=== PATIENT | male | born 1995 | race Hispanic/Latino ===

== ENCOUNTER 2019-10-24 10:57 | Emergency (ER) | payer OTHER, SELFPAY ==
--- NOTE | 2019-10-24 12:16 | ER ---
Nurse's Notes [facility] Name: Ivan Cordero Age: 24 yrs Sex: Male : 1995 Arrival Date: 10/24/2019 Time: 10:58 Bed 16 Private MD: Unknown, Unknown Diagnosis: Acute upper respiratory infection, unspecified Presentation: 10/24 11:12 Presenting complaint: Patient states: Sore throat yesterday and woke this morning and jl7 coughed up blood in my hand. Transition of care: patient was not received from another setting of care. Onset of symptoms was October 24, 2019. Risk Assessment: Do you want to hurt yourself or someone else? Patient reports no desire to harm self or others. Initial Sepsis Screen: Does the patient meet any 2 criteria? No. Patient's initial sepsis screen is negative. Does the patient have a suspected source of infection? Yes: Productive cough/pneumonia. Care prior to arrival: None. 11:12 Method Of Arrival: Ambulatory [facility] 11:12 Acuity: DANIEL 3 jl7 Triage Assessment: 11:14 General: Appears in no apparent distress. uncomfortable, Behavior is cooperative, jl7 anxious. Pain: Denies pain. Cardiovascular: Heart tones present Patient's skin is warm and dry. Respiratory: Airway is patent Respiratory effort is even, unlabored, Respiratory pattern is regular, symmetrical, Breath sounds are clear bilaterally. Historical: - Allergies: 11:14 No Known Allergies; jl7 - Home Meds: 11:14 None [Active]; jl7 - PMHx: 11:14 None; jl7 - PSHx: 11:14 Tonsillectomy; Adenoids; Hernia repair; jl7 - Immunization history:: Adult Immunizations not up to date. - Social history:: Smoking status: Patient uses tobacco products, smokes one-half pack cigarettes per day. - Ebola Screening: : No symptoms or risks identified at this time. Screenin:53 Abuse screen: Denies threats or abuse. Denies injuries from another. Nutritional ca1 screening: No deficits noted. Tuberculosis screening: No symptoms or risk factors identified. Fall Risk None identified. Assessment: 11:53 General: Appears in no apparent distress. comfortable, Behavior is calm, cooperative, ca1 appropriate for age. Pain: Denies pain. Neuro: Level of Consciousness is awake, alert, obeys commands, Oriented to person, place, time, situation, Appropriate for age. Cardiovascular: Heart tones S1 S2 present Capillary refill < 3 seconds Patient's skin is warm and dry. Respiratory: Reports cough that is pt states, "I always have a little cough here and there" Airway is patent Respiratory effort is even, unlabored, Respiratory pattern is regular, symmetrical, Breath sounds are clear bilaterally. EENT: Throat is clear. Derm: Skin is intact, is healthy with good turgor, Skin is pink, warm \\T\\ dry. Musculoskeletal: Circulation, motion, and sensation intact. Capillary refill < 3 seconds, Range of motion: intact in all extremities. Vital Signs: 11:14 BP 119 / 69; Pulse 80; Resp 18 S; Temp 98.1(O); Pulse Ox 99% on R/A; Weight 68.04 kg jl7 (R); Height 5 ft. 9 in. (175.26 cm) (R); Pain 0/10; 12:10 BP 115 / 73; Pulse 79; Resp 17 S; Pulse Ox 100% on R/A; ca1 11:14 Body Mass Index 22.15 (68.04 kg, 175.26 cm) 7 ED Course: 10:58 Patient arrived in ED. ag5 11:00 Unknown, Unknown is Private Physician. ag5 11:13 Triage completed. jl7 11:14 Arm band placed on right wrist. jl7 11:16 Patient placed in waiting room, Patient notified of wait time. jl7 11:34 Yue Erickson, RN is Primary Nurse. ca1 11:36 Mon[facility] Andre F[facility]-C [facility]. snw 11:36 Marvin James MD is Attending Physician. snw 11:53 Patient has correct armband on for positive identification. Bed in low position. Call ca1 light in reach. Side rails up X 1. Pulse ox on. NIBP on. Warm blanket given. 11:53 No provider procedures requiring assistance completed. Patient did not have IV access ca1 during this emergency room visit. Administered Medications: No medications were administered Outcome: 12:15 Discharge ordered by . snw 12:31 Discharged to home ambulatory. ca1 12:31 Condition: stable 12:31 Discharge instructions given to patient, Instructed on discharge instructions, follow up and referral plans. medication usage, Demonstrated understanding of instructions, follow-up care, medications, Prescriptions given X 1. 12:31 Patient left the ED. ca1 Signatures: Monique Andre, CHILD CARE ASSOCIATE TEACHER-C CHILD CARE ASSOCIATE TEACHER-Csnw Ishmael Pruitt RN RN jl7 Yue Erickson RN RN ca1 [place], [place] ag5
--- NOTE | 2019-10-24 12:16 | EDPHYS ---
Physician Documentation [facility] Name: Ivan Cordero Age: 24 yrs Sex: Male : 1995 Arrival Date: 10/24/2019 Time: 10:58 Bed 16 Private MD: Unknown, Unknown ED Physician Marvin James HPI: 10/24 12:12 This 24 yrs old Male presents to ER via Ambulatory with complaints of Bloody snw Cough. 12:12 Onset: The symptoms/episode began/occurred suddenly. Associated signs and symptoms: snw Pertinent positives: sore throat. Modifying factors: The patient symptoms are alleviated by nothing, the patient symptoms are aggravated by nothing. The patient has not experienced similar symptoms in the past. The patient has not recently seen a physician. no other complaints. Historical: - Allergies: 11:14 No Known Allergies; jl7 - Home Meds: 11:14 None [Active]; jl7 - PMHx: 11:14 None; jl7 - PSHx: 11:14 Tonsillectomy; Adenoids; Hernia repair; jl7 - Immunization history:: Adult Immunizations not up to date. - Social history:: Smoking status: Patient uses tobacco products, smokes one-half pack cigarettes per day. - Ebola Screening: : No symptoms or risks identified at this time. ROS: 12:11 Constitutional: Negative for fever, chills, and weight loss, Eyes: Negative for injury, snw pain, redness, and discharge, Neck: Negative for injury, pain, and swelling, Cardiovascular: Negative for chest pain, palpitations, and edema, Abdomen/GI: Negative for abdominal pain, nausea, vomiting, diarrhea, and constipation, Back: Negative for injury and pain, : Negative for injury, bleeding, discharge, and swelling, MS/Extremity: Negative for injury and deformity, Skin: Negative for injury, rash, and discoloration, Neuro: Negative for headache, weakness, numbness, tingling, and seizure, Psych: Negative for depression, anxiety, suicide ideation, homicidal ideation, and hallucinations. 12:11 ENT: Positive for sore throat. 12:11 Respiratory: Positive for coughed up blood this am x 1. Exam: 12:11 Constitutional: This is a well developed, well nourished patient who is awake, alert, snw and in no acute distress. Head/Face: Normocephalic, atraumatic. Eyes: Pupils equal round and reactive to light, extra-ocular motions intact. Lids and lashes normal. Conjunctiva and sclera are non-icteric and not injected. Cornea within normal limits. Periorbital areas with no swelling, redness, or edema. ENT: Nares patent. No nasal discharge, no septal abnormalities noted. Tympanic membranes are normal and external auditory canals are clear. Oropharynx with no redness, swelling, or masses, exudates, or evidence of obstruction, uvula midline. Mucous membranes moist. Neck: Trachea midline, no thyromegaly or masses palpated, and no cervical lymphadenopathy. Supple, full range of motion without nuchal rigidity, or vertebral point tenderness. No Meningismus. Chest/axilla: Normal chest wall appearance and motion. Nontender with no deformity. No lesions are appreciated. Cardiovascular: Regular rate and rhythm with a normal S1 and S2. No gallops, murmurs, or rubs. Normal PMI, no JVD. No pulse deficits. Respiratory: Lungs have equal breath sounds bilaterally, clear to auscultation and percussion. No rales, rhonchi or wheezes noted. No increased work of breathing, no retractions or nasal flaring. Abdomen/GI: Soft, non-tender, with normal bowel sounds. No distension or tympany. No guarding or rebound. No evidence of tenderness throughout. Back: No spinal tenderness. No costovertebral tenderness. Full range of motion. Skin: Warm, dry with normal turgor. Normal color with no rashes, no lesions, and no evidence of cellulitis. MS/ Extremity: Pulses equal, no cyanosis. Neurovascular intact. Full, normal range of motion. Neuro: Awake and alert, GCS 15, oriented to person, place, time, and situation. Cranial nerves II-XII grossly intact. Motor strength 5/5 in all extremities. Sensory grossly intact. Cerebellar exam normal. Normal gait. Psych: Awake, alert, with orientation to person, place and time. Behavior, mood, and affect are within normal limits. Vital Signs: 11:14 BP 119 / 69; Pulse 80; Resp 18 S; Temp 98.1(O); Pulse Ox 99% on R/A; Weight 68.04 kg jl7 (R); Height 5 ft. 9 in. (175.26 cm) (R); Pain 0/10; 12:10 BP 115 / 73; Pulse 79; Resp 17 S; Pulse Ox 100% on R/A; ca1 11:14 Body Mass Index 22.15 (68.04 kg, 175.26 cm) jl7 MDM: 11:43 Patient medically screened. snw 12:13 Data reviewed: vital signs, nurses notes. Data interpreted: Pulse oximetry: on room air snw is 100 %. Interpretation: normal. Counseling: I had a detailed discussion with the patient and/or guardian regarding: the historical points, exam findings, and any diagnostic results supporting the discharge/admit diagnosis, lab results, the need for outpatient follow up, to return to the emergency department if symptoms worsen or persist or if there are any questions or concerns that arise at home. Special discussion: Based on the history and exam findings, there is no indication for further emergent testing or inpatient evaluation. I discussed with the patient/guardian the need to see the primary care provider for further evaluation of the symptoms. 12:16 ED course: pt denies hematuria, epistaxis, gingival bleeding, does have one very small snw pretibial ecchymotic area. 10/24 11:55 Order name: Strep; Complete Time: 12:13 ca1 10/24 12:15 Order name: Throat Culture EDMS Administered Medications: No medications were administered Disposition: 15:20 Co-signature as Attending Physician, Marvin James MD I agree with the assessment and benny plan of care. Disposition: 10/24/19 12:15 Discharged to Home. Impression: Acute upper respiratory infection, unspecified. - Condition is Stable. - Discharge Instructions: Upper Respiratory Infection, Adult, Cool Mist Vaporizer. - Prescriptions for Zyrtec 10 mg Oral Tablet - take 1 tablet by ORAL route once daily As needed; 20 tablet. - Medication Reconciliation Form, Thank You Letter, Antibiotic Education, Prescription Opioid Use, Work release form form. - Follow up: Private Physician; When: 2 - 3 days; Reason: Recheck today's complaints, Continuance of care, Re-evaluation by your physician. Follow up: Emergency Department; When: As needed; Reason: Worsening of condition. Signatures: Dispatcher [employer] EDMarvin Maza MD MD cha Therrien, Shelly, CYBER WORKFORCE DEVELOPER AND MANAGER-C CYBER WORKFORCE DEVELOPER AND MANAGER-Csnw Ishmael Pruitt, RN RN jl7 Yue Erickson RN RN ca1 Corrections: (The following items were deleted from the chart) 12:31 12:15 10/24/2019 12:15 Discharged to Home. Impression: Acute upper respiratory ca1 infection, unspecified. Condition is Stable. Forms are Medication Reconciliation Form, Thank You Letter, Antibiotic Education, Prescription Opioid Use. Follow up: Private Physician; When: 2 - 3 days; Reason: Recheck today's complaints, Continuance of care, Re-evaluation by your physician. Follow up: Emergency Department; When: As needed; Reason: Worsening of condition. snw
[2019-10-24 12:44] VITALS: TEMP 98.1
[2019-10-24 12:45] VITALS: BP 115/73; O2SAT 100
== END 2019-10-24 12:31 | disposition home or self-care (01) ==
LOC: ER 10:57
DX: J06.9 Acute upper respiratory infection, unspecified (principal); F17.210 Nicotine dependence, cigarettes, uncomplicated
CPT/HCPCS: 87070; 87081; 99283

== ENCOUNTER 2019-11-21 08:33 | Emergency (ER) | payer SELFPAY ==
[2019-11-21 10:49] LABS: Absolute Lymphocytes (CBC) 3.1 K/uL (0.7-4.9); Hematocrit 42.6 % (39.6-49.0); MPV 9.4 fL (7.6-11.3); RBC Red Blood Cell Count 4.44 M/uL (4.33-5.43)
[2019-11-21] MEDS ORDERED: ONDANSETRON 4 MG/2 ML VIAL ONE (11:09)
[2019-11-21] MEDS ORDERED: NA CHLORIDE 0.9% 1,000 ML ONE (11:09)
[2019-11-21 11:32] LABS: ALT/SGPT 23 U/L (12-78); AST/SGOT 15 U/L (15-37); Albumin 4.1 g/dL (3.4-5.0); Alkaline Phosphatase 73 U/L (45-117); BUN Blood Urea Nitrogen 18 mg/dL (7-18); Bicarbonate 30 mmol/L (21-32); Bilirubin Direct 0.1 mg/dL (0-0.2); Bilirubin Total 0.3 mg/dL (0.2-1.0); Glucose Level 100 mg/dL (74-106); Lipase 156 U/L (73-393); Potassium 4.1 mmol/L (3.5-5.1); Protein, Total 6.9 g/dL (6.4-8.2); Sodium Level 140 mmol/L (136-145)
--- NOTE | 2019-11-21 11:42 | ER ---
Nurse's Notes [facility] Name: Ivan Cordero Age: 24 yrs Sex: Male : 1995 Arrival Date: 11/21/2019 Time: 08:36 Bed 24 Private MD: Diagnosis: Nausea and vomiting;Diarrhea, unspecified Presentation: 11/21 08:57 Presenting complaint: Patient states: "Around 5pm I was at work and that's when I ss started throwing up. I went to sleep to see if it would go away, but I woke up around 0700 this morning throwing up again. I don't know if it has anything to do with it, but I have had diarrhea for the past two weeks.". Transition of care: patient was not received from another setting of care. Onset of symptoms was November 20, 2019. Risk Assessment: Do you want to hurt yourself or someone else? Patient reports no desire to harm self or others. Initial Sepsis Screen: Does the patient meet any 2 criteria? No. Patient's initial sepsis screen is negative. Does the patient have a suspected source of infection? No. Patient's initial sepsis screen is negative. Care prior to arrival: None. 08:57 Method Of Arrival: Ambulatory ss 08:57 Acuity: DANIEL 3 ss Triage Assessment: 12:00 GI: Reports nausea. mg2 12:08 General: Behavior is calm, cooperative. mg2 Historical: - Allergies: 08:59 No Known Allergies; ss - Home Meds: 08:59 None [Active]; ss - PMHx: 08:59 None; ss - PSHx: 08:59 None; ss - Immunization history:: Adult Immunizations up to date. - Social history:: Smoking status: Patient/guardian denies using tobacco. - Ebola Screening: : Patient denies exposure to infectious person Patient denies travel to an Ebola-affected area in the 21 days before illness onset. Screenin:07 Abuse screen: Denies threats or abuse. Denies injuries from another. Nutritional mg2 screening: No deficits noted. Tuberculosis screening: No symptoms or risk factors identified. Fall Risk IV access (20 points). Assessment: 10:10 General: Appears in no apparent distress. comfortable, Behavior is calm, cooperative. ss Neuro: Level of Consciousness is awake, alert, obeys commands, Oriented to person, place, time, situation, Speech is normal. Respiratory: Airway is patent Respiratory effort is even, unlabored, Respiratory pattern is regular, symmetrical. GI: Reports nausea, vomiting, Patient currently denies abdominal pain. : Denies burning with urination, urinary frequency. Derm: Skin is dry, Skin is pink, warm \\T\\ dry. normal. 11:00 General: Appears in no apparent distress. comfortable, Behavior is calm, cooperative. ss Neuro: Level of Consciousness is awake, alert, obeys commands. 12:06 Reassessment: Patient appears in no apparent distress at this time. General: Appears in mg2 no apparent distress. comfortable. Pain: Denies pain. Neuro: Level of Consciousness is awake, alert, obeys commands, Oriented to person, place, time, situation. Cardiovascular: No deficits noted. Respiratory: Airway is patent Respiratory effort is even, unlabored, Respiratory pattern is regular, symmetrical. GI: Abdomen is flat, obese. : No signs and/or symptoms were reported regarding the genitourinary system. EENT: No signs and/or symptoms were reported regarding the EENT system. Derm: Skin is intact, is healthy with good turgor, Skin is pink, warm \\T\\ dry. normal. Musculoskeletal: Circulation, motion, and sensation intact. Capillary refill < 3 seconds. Vital Signs: 08:59 BP 120 / 91; Pulse 76; Resp 17; Temp 97.6(TE); Pulse Ox 99% on R/A; Weight 68.04 kg; ss Height 5 ft. 5 in. (165.10 cm); Pain 0/10; 12:03 BP 106 / 60; Pulse 69; Resp 18; Pulse Ox 100% on R/A; jp3 08:59 Body Mass Index 24.96 (68.04 kg, 165.10 cm) ED Course: 08:36 Patient arrived in ED. ag5 08:59 Triage completed. 08:59 Arm band placed on right wrist. ss 10:08 Khai Odom PA is PHCP. jr8 10:08 Marvin James MD is Attending Physician. jr8 10:40 Initial lab(s) drawn, by nc, sent to lab. Inserted saline lock: 20 gauge in right ms forearm, using aseptic technique. Blood collected. 11:03 Margret Damico, RN is Primary Nurse. ss 11:41 Mehrdad Edmonds MD is Referral Physician. jr8 12:04 Removal of peripheral IV. Catheter intact, dressing applied. jp3 12:07 Patient has correct armband on for positive identification. Pulse ox on. NIBP on. mg2 12:07 No provider procedures requiring assistance completed. IV discontinued, intact, mg2 bleeding controlled, No redness/swelling at site. Pressure dressing applied. Administered Medications: 11:10 Drug: Zofran 4 mg Route: IVP; Site: right forearm; ss 11:13 Drug: NS 0.9% 1000 ml Route: IV; Rate: 1000 ml; Site: right forearm; ss Outcome: 11:41 Discharge ordered by . jr8 12:08 Discharged to home ambulatory. mg2 12:08 Condition: stable 12:08 Discharge instructions given to patient, Instructed on discharge instructions, follow up and referral plans. medication usage, Demonstrated understanding of instructions, follow-up care, medications, Prescriptions given X 4. 12:08 Patient left the ED. mg2 Signatures: Marii Murray ms, Shelby, RN RN Khai Odom PA PA jr8 Saud Edwards, MARGARITO RN [facility] Brenton Montano jp3 [place] ag5
--- NOTE | 2019-11-21 11:42 | EDPHYS ---
Physician Documentation [facility] Name: Ivan Cordero Age: 24 yrs Sex: Male : 1995 Arrival Date: 11/21/2019 Time: 08:36 Bed 24 Private MD: ED Physician Marvin James HPI: 11/21 11:17 This 24 yrs old Male presents to ER via Ambulatory with complaints of jr8 Vomiting/Diarrhea. 11:17 The patient presents to the emergency department with nausea, vomiting, diarrhea. jr8 Onset: The symptoms/episode began/occurred gradually, 4 day(s) ago. Possible causes: unknown. The symptoms are aggravated by nothing. The symptoms are alleviated by nothing. Associated signs and symptoms: The patient has no apparent associated signs or symptoms. Severity of symptoms: At their worst the symptoms were mild in the emergency department the symptoms are unchanged. The patient has not experienced similar symptoms in the past. The patient has not recently seen a physician. Historical: - Allergies: 08:59 No Known Allergies; ss - Home Meds: 08:59 None [Active]; ss - PMHx: 08:59 None; ss - PSHx: 08:59 None; ss - Immunization history:: Adult Immunizations up to date. - Social history:: Smoking status: Patient/guardian denies using tobacco. - Ebola Screening: : Patient denies exposure to infectious person Patient denies travel to an Ebola-affected area in the 21 days before illness onset. ROS: 11:17 Eyes: Negative for injury, pain, redness, and discharge, ENT: Negative for injury, jr8 pain, and discharge, Neck: Negative for injury, pain, and swelling, Cardiovascular: Negative for chest pain, palpitations, and edema, Respiratory: Negative for shortness of breath, cough, wheezing, and pleuritic chest pain, Back: Negative for injury and pain, MS/Extremity: Negative for injury and deformity, Skin: Negative for injury, rash, and discoloration, Neuro: Negative for headache, weakness, numbness, tingling, and seizure. 11:17 Abdomen/GI: Positive for nausea, vomiting, and diarrhea, Negative for abdominal pain, abdominal distension, anorexia, dysphagia, hematemesis, black/tarry stool, rectal pain, rectal bleeding, bowel incontinence, flatulence. Exam: 11:17 Eyes: Pupils equal round and reactive to light, extra-ocular motions intact. Lids and jr8 lashes normal. Conjunctiva and sclera are non-icteric and not injected. Cornea within normal limits. Periorbital areas with no swelling, redness, or edema. ENT: Nares patent. No nasal discharge, no septal abnormalities noted. Tympanic membranes are normal and external auditory canals are clear. Oropharynx with no redness, swelling, or masses, exudates, or evidence of obstruction, uvula midline. Mucous membranes moist. Neck: Trachea midline, no thyromegaly or masses palpated, and no cervical lymphadenopathy. Supple, full range of motion without nuchal rigidity, or vertebral point tenderness. No Meningismus. Cardiovascular: Regular rate and rhythm with a normal S1 and S2. No gallops, murmurs, or rubs. Normal PMI, no JVD. No pulse deficits. Respiratory: Lungs have equal breath sounds bilaterally, clear to auscultation and percussion. No rales, rhonchi or wheezes noted. No increased work of breathing, no retractions or nasal flaring. Abdomen/GI: Soft, non-tender, with normal bowel sounds. No distension or tympany. No guarding or rebound. No evidence of tenderness throughout. Back: No spinal tenderness. No costovertebral tenderness. Full range of motion. Skin: Warm, dry with normal turgor. Normal color with no rashes, no lesions, and no evidence of cellulitis. MS/ Extremity: Pulses equal, no cyanosis. Neurovascular intact. Full, normal range of motion. Neuro: Awake and alert, GCS 15, oriented to person, place, time, and situation. Cranial nerves II-XII grossly intact. Motor strength 5/5 in all extremities. Sensory grossly intact. Cerebellar exam normal. Normal gait. Vital Signs: 08:59 BP 120 / 91; Pulse 76; Resp 17; Temp 97.6(TE); Pulse Ox 99% on R/A; Weight 68.04 kg; ss Height 5 ft. 5 in. (165.10 cm); Pain 0/10; 12:03 BP 106 / 60; Pulse 69; Resp 18; Pulse Ox 100% on R/A; jp3 08:59 Body Mass Index 24.96 (68.04 kg, 165.10 cm) MDM: 10:10 Patient medically screened. [facility] 11:40 Data reviewed: vital signs, nurses notes, lab test result(s), and as a result, I will jr8 discharge patient. Data interpreted: Pulse oximetry: on room air is 99 %. Interpretation: normal. Counseling: I had a detailed discussion with the patient and/or guardian regarding: the historical points, exam findings, and any diagnostic results supporting the discharge/admit diagnosis, lab results, the need for outpatient follow up, a desktop specialist, to return to the emergency department if symptoms worsen or persist or if there are any questions or concerns that arise at home. Response to treatment: the patient's symptoms have markedly improved after treatment, patient is well hydrated. 11:40 Special discussion: Based on the patient's Hx, exam, and Dx evaluation, there is no [facility] indication for emergent surgery or inpatient Tx. It is understood by the patient/guardian that if the Sx's persist or worsen they need to return immediately for re-evaluation. 11/21 10:16 Order name: Basic Metabolic Panel; Complete Time: 11:40 11/21 10:16 Order name: CBC with Diff; Complete Time: 11:47 11/21 10:16 Order name: Creatinine for Radiology; Complete Time: 11:40 11/21 10:16 Order name: Hepatic Function; Complete Time: 11:40 8 11/21 10:16 Order name: Lipase; Complete Time: 11:40 11/21 11:43 Order name: CBC Smear Scan; Complete Time: 11:47 EDMS 11/21 10:16 Order name: IV Saline Lock; Complete Time: 10:40 11/21 10:16 Order name: Labs collected and sent; Complete Time: 10:40 [facility] Administered Medications: 11:10 Drug: Zofran 4 mg Route: IVP; Site: right forearm; ss 11:13 Drug: NS 0.9% 1000 ml Route: IV; Rate: 1000 ml; Site: right forearm; ss Disposition: 12:39 Co-signature as Attending Physician, Marvin James MD I agree with the assessment and [facility] plan of care. Disposition: 11/21/19 11:41 Discharged to Home. Impression: Nausea and vomiting, Diarrhea, unspecified. - Condition is Stable. - Discharge Instructions: Diarrhea, Adult, Nausea and Vomiting, Adult. - Prescriptions for Bentyl 20 mg Oral Tablet - take 1 tablet by ORAL route every 6 hours As needed; 20 tablet. Cipro 500 mg Oral Tablet - take 1 tablet by ORAL route every 12 hours for 10 days; 20 tablet. Flagyl 500 mg Oral Tablet - take 1 tablet by ORAL route every 6 hours for 10 days; 40 tablet. Zofran 4 mg Oral Tablet - take 1 tablet by ORAL route every 12 hours As needed; 20 tablet. - Medication Reconciliation Form, Thank You Letter, Antibiotic Education, Prescription Opioid Use, Work release form form. - Follow up: Mehrdad Edmonds MD; When: 1 week; Reason: Recheck today's complaints, Continuance of care, Re-evaluation by your physician. - Problem is new. - Symptoms have improved. Signatures: Dispatcher [employer] EDWY Marvin James MD MD cha Smirch, Shelby, RN RN Khai Ly PA PA jr8 Saud Edwards RN RN mg2 Corrections: (The following items were deleted from the chart) 12:08 11:41 11/21/2019 11:41 Discharged to Home. Impression: Nausea and vomiting; Diarrhea, mg2 unspecified. Condition is Stable. Forms are Medication Reconciliation Form, Thank You Letter, Antibiotic Education, Prescription Opioid Use. Follow up: Mehrdad Edmonds; When: 1 week; Reason: Recheck today's complaints, Continuance of care, Re-evaluation by your physician. Problem is new. Symptoms have improved. jr8
[2019-11-21 11:43] LABS: Blood Morphology Comment NOT SEEN (NOT SEEN); Platelet Estimate ADEQ; Urine White Blood Cell Casts OK
[2019-11-21 12:30] VITALS: TEMP 97.6
[2019-11-21 12:32] VITALS: BP 106/60; O2SAT 100
== END 2019-11-21 12:08 | disposition home or self-care (01) ==
LOC: ER 08:33
DX: R11.2 Nausea with vomiting, unspecified (principal); R19.7 Diarrhea, unspecified
CPT/HCPCS: 36415; 80048; 80076; 83690; 85025; 96374; 99284; J2405; J7030

== ENCOUNTER 2019-11-28 16:39 | Emergency (ER) | payer SELFPAY ==
[2019-11-28 19:43] LABS: Absolute Lymphocytes (CBC) 2.2 K/uL (0.7-4.9); Basophils % 1.1 % (0-1.3); Hematocrit 43.9 % (39.6-49.0); Lymphocytes % 44.3 % (15.3-44.8); MPV 9.9 fL (7.6-11.3); RBC Red Blood Cell Count 4.56 M/uL (4.33-5.43)
[2019-11-28 20:06] LABS: ALT/SGPT 26 U/L (12-78); AST/SGOT 12 U/L (15-37); Albumin 4.3 g/dL (3.4-5.0); Alkaline Phosphatase 83 U/L (45-117); BUN Blood Urea Nitrogen 14 mg/dL (7-18); Bicarbonate 28 mmol/L (21-32); Bilirubin Direct 0.2 mg/dL (0-0.2); Bilirubin Total 0.6 mg/dL (0.2-1.0); Glucose Level 78 mg/dL (74-106); Lipase 110 U/L (73-393); Potassium 3.8 mmol/L (3.5-5.1); Protein, Total 7.6 g/dL (6.4-8.2); Sodium Level 142 mmol/L (136-145)
[2019-11-28] MEDS ORDERED: NA CHLORIDE 0.9% 1,000 ML ONE (20:10)
[2019-11-28 20:26] LABS: Platelet Estimate ADEQ
[2019-11-28 20:27] LABS: Blood Morphology Comment NOT SEEN (NOT SEEN)
--- NOTE | 2019-11-28 20:42 | ER ---
Nurse's Notes [facility] Name: Ivan Cordero Age: 24 yrs Sex: Male : 1995 Arrival Date: 11/28/2019 Time: 16:42 Bed 27 Private MD: Diagnosis: Diarrhea, unspecified Presentation: 11/28 16:44 Presenting complaint: Patient states: "I came in here about 3 days ago for the same aj1 thing, but as soon as eat something it goes right through me and I have to go to the bathroom immediately" Patient reports diarrhea. Transition of care: patient was not received from another setting of care. Onset of symptoms was 2019. Risk Assessment: Do you want to hurt yourself or someone else? Patient reports no desire to harm self or others. Initial Sepsis Screen: Does the patient meet any 2 criteria? No. Patient's initial sepsis screen is negative. Does the patient have a suspected source of infection? No. Patient's initial sepsis screen is negative. Care prior to arrival: None. 16:44 Method Of Arrival: Ambulatory aj1 16:44 Acuity: DANIEL 3 aj1 Triage Assessment: 16:46 General: Appears in no apparent distress. comfortable, Behavior is calm, cooperative, aj1 appropriate for age. Pain: Denies pain. Neuro: Level of Consciousness is awake, alert, obeys commands. Cardiovascular: Patient's skin is warm and dry. Respiratory: Airway is patent Respiratory effort is even, unlabored, Respiratory pattern is regular, agonal. GI: Reports diarrhea. Historical: - Allergies: 16:46 No Known Allergies; aj1 - Home Meds: 16:46 None [Active]; aj1 - PMHx: 16:46 None; aj1 - PSHx: 16:46 None; aj1 - Immunization history:: Flu vaccine is not up to date. - Social history:: Smoking status: Patient/guardian denies using tobacco. - Ebola Screening: : Patient denies travel to an Ebola-affected area in the 21 days before illness onset. Screenin:26 Abuse screen: Denies threats or abuse. Nutritional screening: No deficits noted. jv1 Tuberculosis screening: No symptoms or risk factors identified. Fall Risk None identified. No fall in past 12 months (0 pts). Assessment: 20:18 General: Appears in no apparent distress. uncomfortable, well groomed, Behavior is jv1 calm, cooperative, appropriate for age. Pain: Denies pain. Neuro: Level of Consciousness is awake, alert, obeys commands, Oriented to person, place, time, situation, Fuel Dock Attendant are equal bilaterally Moves all extremities. Cardiovascular: Denies chest pain, Heart tones S1 S2 Capillary refill < 3 seconds Pulses are all present. Respiratory: Airway is patent Respiratory effort is even, unlabored, Respiratory pattern is regular, symmetrical, Breath sounds are clear bilaterally. GI: Abdomen is flat, non-distended, Last BM was November 28, 2019. Bowel sounds present X 4 quads. Abd is soft Abd is non tender X 4 quads. : No signs and/or symptoms were reported regarding the genitourinary system. EENT: No signs and/or symptoms were reported regarding the EENT system. Derm: Skin is intact, is healthy with good turgor. Musculoskeletal: Circulation, motion, and sensation intact. Capillary refill < 3 seconds. 21:19 Reassessment: Patient appears in no apparent distress at this time. No changes from jv1 previously documented assessment. Patient and/or family updated on plan of care and expected duration. Pain level reassessed. Vital Signs: 16:46 BP 102 / 82; Pulse 77; Resp 18; Temp 97.3; Pulse Ox 98% on R/A; Weight 68.04 kg (R); aj1 Height 5 ft. 9 in. (175.26 cm) (R); Pain 0/10; 20:00 BP 120 / 80; Pulse 75; Resp 18; Temp 98; Pulse Ox 99% on R/A; Pain 0/10; jv1 21:00 BP 115 / 70; Pulse 74; Resp 18; Temp 98(O); Pulse Ox 99% on R/A; Pain 0/10; jv1 16:46 Body Mass Index 22.15 (68.04 kg, 175.26 cm) 1 ED Course: 16:42 Patient arrived in ED. mr 16:46 Triage completed. aj1 16:46 Arm band placed on Patient placed in waiting room, Patient notified of wait time. [facility] 19:05 Champ Jiang PA is PHCP. [facility] 19:05 Marvin James MD is Attending Physician. [facility] 19:08 Tabby Verdugo, MARGARITO is Primary Nurse. ls4 20:27 Patient has correct armband on for positive identification. Placed in gown. Bed in low jv1 position. Call light in reach. Side rails up X 1. Adult w/ patient. 21:30 No provider procedures requiring assistance completed. jv1 21:31 IV discontinued, intact, bleeding controlled, No redness/swelling at site. Pressure jv1 dressing applied. Administered Medications: 20:08 Drug: NS 0.9% 1000 ml Route: IV; Rate: 1 bolus; Site: left antecubital; jv1 21:31 Follow up: Response: No adverse reaction; IV Status: Completed infusion jv1 Outcome: 20:42 Discharge ordered by . vanessa 21:31 Discharged to home ambulatory. jv1 21:31 Condition: improved 21:31 Discharge instructions given to patient, family. 21:32 Patient left the ED. jv1 Signatures: Esperanza Solis, RN RN aj1 Champ Jiang PA PA jmm Rivera, Mary mr Sandy Smith RN RN jv1 Tabby Verdugo RN RN ls4
--- NOTE | 2019-11-28 20:43 | EDPHYS ---
Physician Documentation [facility] Name: Ivan Cordero Age: 24 yrs Sex: Male : 1995 Arrival Date: 11/28/2019 Time: 16:42 Bed 27 Private MD: ED Physician Marvin James HPI: 11/28 19:13 This 24 yrs old Male presents to ER via Ambulatory with complaints of jmm Vomiting/Diarrhea. 19:13 The patient presents to the emergency department with diarrhea. Onset: The jmm symptoms/episode began/occurred gradually, 3 day(s) ago. Possible causes: unknown. The symptoms are aggravated by nothing. The symptoms are alleviated by nothing. Associated signs and symptoms: Pertinent positives: diarrhea, Pertinent negatives: vomiting. This is a 24 year old male with no chronic medical conditions that presents to the ED with complaints of diarrhea which has been ongoing for the past 3 days. Denies vomiting, denies abdominal pain. . Historical: - Allergies: 16:46 No Known Allergies; aj1 - Home Meds: 16:46 None [Active]; aj1 - PMHx: 16:46 None; aj1 - PSHx: 16:46 None; aj1 - Immunization history:: Flu vaccine is not up to date. - Social history:: Smoking status: Patient/guardian denies using tobacco. - Ebola Screening: : Patient denies travel to an Ebola-affected area in the 21 days before illness onset. ROS: 19:13 Constitutional: Negative for fever, chills, and weight loss, Cardiovascular: Negative jmm for chest pain, palpitations, and edema, Respiratory: Negative for shortness of breath, cough, wheezing, and pleuritic chest pain. 19:13 Abdomen/GI: Positive for diarrhea. 19:13 All other systems are negative. Exam: 19:13 Constitutional: This is a well developed, well nourished patient who is awake, alert, jmm and in no acute distress. Head/Face: atraumatic. Eyes: EOMI, no conjunctival erythema appreciated ENT: Moist Mucus Membranes Neck: Trachea midline, Supple Chest/axilla: Normal chest wall appearance and motion. Cardiovascular: Regular rate and rhythm. No edema appreciated Respiratory: Normal respirations, no respiratory distress appreciated Abdomen/GI: Non distended, soft Back: Normal ROM Skin: General appearance color normal MS/ Extremity: Moves all extremities, no obvious deformities appreciated, no edema noted to the lower extremities Neuro: Awake and alert, normal gait Psych: Behavior is normal, Mood is normal, Patient is cooperative and pleasant Vital Signs: 16:46 BP 102 / 82; Pulse 77; Resp 18; Temp 97.3; Pulse Ox 98% on R/A; Weight 68.04 kg (R); aj1 Height 5 ft. 9 in. (175.26 cm) (R); Pain 0/10; 20:00 BP 120 / 80; Pulse 75; Resp 18; Temp 98; Pulse Ox 99% on R/A; Pain 0/10; jv1 21:00 BP 115 / 70; Pulse 74; Resp 18; Temp 98(O); Pulse Ox 99% on R/A; Pain 0/10; jv1 16:46 Body Mass Index 22.15 (68.04 kg, 175.26 cm) aj1 MDM: 19:07 Patient medically screened. [facility] 20:41 Data reviewed: vital signs, nurses notes. Counseling: I had a detailed discussion with vanessa the patient and/or guardian regarding: the historical points, exam findings, and any diagnostic results supporting the discharge/admit diagnosis, lab results, the need for outpatient follow up, to return to the emergency department if symptoms worsen or persist or if there are any questions or concerns that arise at home. ED course: Patient is alert and non toxic in appearance in the ED. Tolerates PO. No abdominal pain. Patient was given early appendicitis return precautions. Patient understood and agrees with the plan of care. . 11/28 19:12 Order name: Basic Metabolic Panel; Complete Time: 20:10 [facility] 11/28 19:12 Order name: CBC with Diff; Complete Time: 20:28 [facility] 11/28 19:12 Order name: Creatinine for Radiology; Complete Time: 19:58 [facility] 11/28 19:12 Order name: Hepatic Function; Complete Time: 20:10 [facility] 11/28 19:12 Order name: Lipase; Complete Time: 20:10 [facility] 11/28 19:50 Order name: Manual Differential; Complete Time: 20:28 [facility] 11/28 19:12 Order name: IV Saline Lock; Complete Time: 20:07 [facility] 11/28 19:12 Order name: Labs collected and sent; Complete Time: 20:08 [facility] Administered Medications: 20:08 Drug: NS 0.9% 1000 ml Route: IV; Rate: 1 bolus; Site: left antecubital; jv1 21:31 Follow up: Response: No adverse reaction; IV Status: Completed infusion jv1 Disposition: 11/28/19 20:42 Discharged to Home. Impression: Diarrhea, unspecified. - Condition is Stable. - Discharge Instructions: Food Choices to Help Relieve Diarrhea, Adult, Diarrhea, Adult, Form - Return To Work. - Medication Reconciliation Form, Thank You Letter, Antibiotic Education, Prescription Opioid Use, Work release form form. - Follow up: Private Physician; When: 2 - 3 days; Reason: Recheck today's complaints, Continuance of care, Re-evaluation by your physician. Addendum: 11/30/2019 09:59 Co-signature as Attending Physician, Marvin James MD I agree with the assessment and c sawant plan of care. Signatures: Dispatcher [employer] Esperanza Zendejas RN RN aj1 Marvin James MD MD cha Mickail, Joel, PA PA jm Sandy Smith, RN RN jv1 Corrections: (The following items were deleted from the chart) 11/28 21:32 20:42 11/28/2019 20:42 Discharged to Home. Impression: Diarrhea, unspecified. Condition jv1 is Stable. Forms are Medication Reconciliation Form, Thank You Letter, Antibiotic Education, Prescription Opioid Use. Follow up: Private Physician; When: 2 - 3 days; Reason: Recheck today's complaints, Continuance of care, Re-evaluation by your physician. vanessa
[2019-11-28 23:15] VITALS: TEMP 98; O2SAT 99
[2019-11-28 23:16] VITALS: BP 115/70
== END 2019-11-28 21:32 | disposition home or self-care (01) ==
LOC: ER 16:39
DX: R19.7 Diarrhea, unspecified (principal)
CPT/HCPCS: 36415; 80048; 80076; 83690; 85025; 96360; 99283; J7030

== ENCOUNTER 2021-06-16 18:31 | Emergency (ER) | payer SELFPAY ==
--- NOTE | 2021-06-16 21:37 | EDPHYS ---
Physician Documentation [facility] Name: Ivan Cordero Age: 26 yrs Sex: Male : 1995 Arrival Date: 06/16/2021 Time: 18:41 Bed DIS2 Private MD: ED Physician Eric Canales HPI: 06/16 21:29 This 26 yrs old Male presents to ER via Ambulatory with complaints of Covid cp test. 21:30 The patient or guardian reports cough, that is intermittent. Onset: The cp symptoms/episode began/occurred 2 day(s) ago. Associated signs and symptoms: Pertinent positives: fatigue, shortness of breath, Pertinent negatives: chest pain, diarrhea, fever, vomiting. Severity of symptoms: in the emergency department the symptoms are unchanged despite home interventions. Patient reports significant other recently tested positive for COVID-19. Historical: - Allergies: 18:58 No Known Allergies; ca1 - PMHx: 18:58 None; ca1 - PSHx: 18:58 None; ca1 - Immunization history:: Client reports having NOT received the Covid vaccine. - Social history:: Smoking status: Patient reports the use of cigarette tobacco products, smokes one-half pack cigarettes per day. ROS: 21:31 Eyes: Negative for injury, pain, redness, and discharge. cp 21:31 Constitutional: Positive for body aches, fatigue, Negative for chills, fever, poor PO intake. 21:31 ENT: Negative for drainage from ear(s), ear pain, sore throat, difficulty swallowing, difficulty handling secretions. 21:31 Cardiovascular: Negative for chest pain, edema, palpitations. 21:31 Respiratory: Positive for cough, with no reported sputum, shortness of breath, on exertion. Negative for wheezing. 21:31 Abdomen/GI: Negative for abdominal pain, nausea, vomiting, and diarrhea. 21:31 Back: Negative for radiated pain. 21:31 Neuro: Negative for altered mental status, headache, syncope, weakness. 21:31 All other systems are negative. Exam: 21:32 Head/Face: Normocephalic, atraumatic. cp 21:32 Constitutional: The patient appears in no acute distress, alert, awake, comfortable, non-diaphoretic, non-toxic, well developed, well nourished. 21:32 Eyes: Periorbital structures: appear normal, Conjunctiva: normal, no exudate, no injection, Sclera: no appreciated abnormality, Lids and lashes: appear normal, bilaterally. 21:32 ENT: External ear(s): are unremarkable, Nose: is normal, Mouth: Lips: moist, Oral mucosa: moist, Posterior pharynx: Airway: no evidence of obstruction, patent. 21:32 Neck: ROM/movement: is normal, is supple, without pain, no range of motions limitations, no meningismus. 21:32 Chest/axilla: Inspection: normal, Palpation: is normal, no crepitus, no tenderness. 21:32 Cardiovascular: Rate: normal, Rhythm: regular. 21:32 Respiratory: the patient does not display signs of respiratory distress, Respirations: normal, no use of accessory muscles, no retractions, labored breathing, is not present, Breath sounds: are clear throughout, no decreased breath sounds, no stridor, no wheezing. 21:32 Abdomen/GI: Exam negative for discomfort, distension, guarding, Inspection: abdomen appears normal. 21:32 Back: pain, is absent, ROM is normal. Vital Signs: 19:02 BP 131 / 81; Pulse 95; Resp 19 S; Temp 99.3(TE); Pulse Ox 100% ; Weight 70.76 kg (R); ca1 Height 5 ft. 9 in. (175.26 cm) (R); Pain 0/10; 21:08 BP 128 / 85; Pulse 88; Resp 18 S; Pulse Ox 100% on R/A; ca1 19:02 Body Mass Index 23.04 (70.76 kg, 175.26 cm) ca1 MDM: 21:22 Patient medically screened. cp 21:34 Differential diagnosis: bronchitis, flu, URI, pneumonia. Data reviewed: vital signs, cp nurses notes, lab test result(s), and as a result, I will discharge patient. Counseling: I had a detailed discussion with the patient and/or guardian regarding: the historical points, exam findings, and any diagnostic results supporting the discharge/admit diagnosis, lab results, to return to the emergency department if symptoms worsen or persist or if there are any questions or concerns that arise at home. ED course: VSS. Patient appears non-toxic and no signs of respiratory distress. Will discharge to home for continued monitoring. Recommend symptomatic treatment and OTC meds for cough and fever. 06/16 19:01 Order name: Flu; Complete Time: 21:17 ca1 06/16 19:01 Order name: Strep; Complete Time: 21:17 ca1 06/16 19:57 Order name: Throat Culture EDMS 06/16 20:33 Order name: SARS-COV-2 RT PCR; Complete Time: 21:17 EDMS 06/16 21:17 Interpretation: Abnormal: SARSCOV2 RT PCR POSITIVE. cp Administered Medications: No medications were administered Disposition: 06/17 02:57 Co-signature as Attending Physician, Eric Canales MD. [email or web address] Disposition Summary: 06/16/21 21:37 Discharge Ordered Location: Home cp Problem: new cp Symptoms: are unchanged cp Condition: Stable cp Diagnosis - SARS-associated coronavirus as the cause of diseases classified elsewhere cp Followup: cp - With: Private Physician - When: 2 - 3 days - Reason: Worsening of condition Discharge Instructions: - Discharge Summary Sheet cp - COVID-19 cp - Things to Know about the COVID-19 Pandemic - [facility] cp - 10 Things You Can Do to Manage Your COVID-19 Symptoms at Home - [facility] cp - COVID-19: Quarantine vs. Isolation - [facility] cp - Prevent the Spread of COVID-19 if You Are Sick - [facility] cp Forms: - Medication Reconciliation Form cp - Thank You Letter cp - Antibiotic Education cp - Prescription Opioid Use cp Signatures: Dispatcher [employer] EDMS Marvin Cooper PA PA cp Yue Erickson RN RN ca1 Holmes, Maurice, MD MD [email or web address] Corrections: (The following items were deleted from the chart) 06/16 19:37 19:01 CORONAVIRUS+BRZ ordered. EDVT EDMS
--- NOTE | 2021-06-16 21:37 | ER ---
Nurse's Notes [facility] Name: Ivan Cordero Age: 26 yrs Sex: Male : 1995 Arrival Date: 06/16/2021 Time: 18:41 Bed DIS2 Private MD: Diagnosis: SARS-associated coronavirus as the cause of diseases classified elsewhere Presentation: 06/16 18:57 Chief complaint: Patient states: Fatigue, SOB and cough x 2 days. Coronavirus screen: ca1 Client denies travel out of the [place] in the last 14 days. cough unrelated to allergies, fatigue, Client presents with at least one sign or symptom that may indicate coronavirus-19. Standard/surgical mask placed on the client. Provider contacted for isolation considerations. Ebola Screen: Patient negative for fever greater than or equal to 101.5 degrees Fahrenheit, and additional compatible Ebola Virus Disease symptoms Patient denies exposure to infectious person. Patient denies travel to an Ebola-affected area in the 21 days before illness onset. No symptoms or risks identified at this time. Initial Sepsis Screen: Does the patient meet any 2 criteria? No. Patient's initial sepsis screen is negative. Does the patient have a suspected source of infection? No. Patient's initial sepsis screen is negative. Risk Assessment: Do you want to hurt yourself or someone else? Patient reports no desire to harm self or others. Onset of symptoms was June 15, 2021. 18:57 Method Of Arrival: Ambulatory ca1 18:57 Acuity: DANIEL 4 ca1 Historical: - Allergies: 18:58 No Known Allergies; ca1 - PMHx: 18:58 None; ca1 - PSHx: 18:58 None; ca1 - Immunization history:: Client reports having NOT received the Covid vaccine. - Social history:: Smoking status: Patient reports the use of cigarette tobacco products, smokes one-half pack cigarettes per day. Screenin:06 Abuse screen: Denies threats or abuse. Denies injuries from another. Nutritional ca1 screening: No deficits noted. Tuberculosis screening: No symptoms or risk factors identified. Fall Risk None identified. Assessment: 21:06 General: Appears in no apparent distress. comfortable, Behavior is calm, cooperative, ca1 appropriate for age. General: Reports fatigue for 1-2 days. Pain: Denies pain. Neuro: Level of Consciousness is awake, alert, obeys commands, Oriented to person, place, time, situation. Respiratory: Reports shortness of breath since 2 days Airway is patent Respiratory effort is even, unlabored, Respiratory pattern is regular, symmetrical, Breath sounds are clear bilaterally. Derm: Skin is intact, is healthy with good turgor, Skin is pink, warm \T\ dry. Musculoskeletal: Circulation, motion, and sensation intact. Capillary refill < 3 seconds. Vital Signs: 19:02 BP 131 / 81; Pulse 95; Resp 19 S; Temp 99.3(TE); Pulse Ox 100% ; Weight 70.76 kg (R); ca1 Height 5 ft. 9 in. (175.26 cm) (R); Pain 0/10; 21:08 BP 128 / 85; Pulse 88; Resp 18 S; Pulse Ox 100% on R/A; ca1 19:02 Body Mass Index 23.04 (70.76 kg, 175.26 cm) ca1 ED Course: 18:41 Patient arrived in ED. mr 18:58 Triage completed. ca1 18:58 Arm band placed on right wrist. ca1 21:06 Yue Erickson RN is Primary Nurse. ca1 21:06 Patient has correct armband on for positive identification. ca1 21:08 No provider procedures requiring assistance completed. Patient did not have IV access ca1 during this emergency room visit. 21:16 Marvin Cooper PA is PHCP. cp 21:16 Eric Canales MD is Attending Physician. cp Administered Medications: No medications were administered Outcome: 21:37 Discharge ordered by MD. cp 21:44 Discharged to home ambulatory. ca1 21:44 Condition: stable 21:44 Discharge instructions given to patient, Instructed on discharge instructions, follow up and referral plans. Demonstrated understanding of instructions, follow-up care. 21:45 Patient left the ED. ca1 Signatures: Cyn Fuentes mr Marvin Cooper PA PA cp Yue Erickson RN RN ca1 Corrections: (The following items were deleted from the chart) 21:08 21:06 Respiratory: Airway is patent Respiratory effort is even, unlabored, Respiratory ca1 pattern is regular, symmetrical, Breath sounds are clear bilaterally. ca1
[2021-06-16 22:28] VITALS: TEMP 99.3; O2SAT 100
[2021-06-16 22:30] VITALS: BP 128/85
== END 2021-06-16 21:45 | disposition home or self-care (01) ==
LOC: ER 18:31
DX: U07.1 COVID-19 (principal); F17.210 Nicotine dependence, cigarettes, uncomplicated
CPT/HCPCS: 87070; 87081; 87804; 99281; U0003

== ENCOUNTER 2024-02-11 11:13 | Emergency (ER) | payer SELFPAY ==
[2024-02-11] MEDS ORDERED: TDAP (DIPHTH,PERTUSS(ACELL),TET VAC) 0.5 ML VIAL IMVAC ONE (11:44)
[2024-02-11] MEDS ORDERED: ACETAMINOPHEN 500 MG TAB ONE (12:27)
[2024-02-11] MEDS ORDERED: IBUPROFEN 200 MG TAB PO ONE (12:28)
[2024-02-11] MEDS ORDERED: IBUPROFEN 400 MG TAB ONE (12:28)
--- NOTE | 2024-02-11 12:29 | RAD REPORT ---
EXAM DESCRIPTION: RAD - Hand Left 3 View - 02/11/2024 12:09 pm CLINICAL HISTORY: FB eval COMPARISON: Hand Right 3 View dated 02/11/2024 FINDINGS/IMPRESSION: No acute fracture. No malalignment. No significant focal degenerative changes. [place] versus remote old styloid fracture.
--- NOTE | 2024-02-11 12:31 | RAD REPORT ---
EXAM DESCRIPTION: RAD - Hand Right 3 View - 02/11/2024 12:09 pm CLINICAL HISTORY: FB eval COMPARISON: No comparisons FINDINGS/IMPRESSION: No acute fracture. No malalignment. No significant focal degenerative changes. Radiopaque debris at the fourth digit along the ulnar aspect of the middle phalanx. This may be on th e skin surface.
[2024-02-11] MEDS ORDERED: DERMABOND SKIN ADHESIVE TOP ONE (12:44)
--- NOTE | 2024-02-11 12:48 | EDPHYS ---
Physician Documentation [facility] Name: Ivan Cordero Age: 28 yrs Sex: Male : 1995 Arrival Date: 02/11/2024 Time: 11:13 Bed 9 Private MD: ED Physician Bhaskar Woodward HPI: 02/10 11:46 This 28 yrs old Male presents to ER via Ambulatory with complaints of sb4 Laceration To Hand. 11:46 Patient states that he punched his car window trying to get in because he left himself sb4 out. He sustained vertical lacerations to first second third fourth anger on the right hand and a small puncture on the left pointer finger with the possibility of glass embedded. He is not up-to-date on his tetanus shot. Bleeding controlled. Historical: - Allergies: 11:30 unknown antibiotic; ph - PMHx: 11:30 None; rs5 - PSHx: 11:30 None; rs5 - Immunization history:: Adult Immunizations unknown. - Infectious Disease History:: Denies. - Social history:: Smoking status: Patient reports the use of cigarette tobacco products, denies chronic smoking, but will smoke occasionally. ROS: 11:46 Constitutional: Negative for fever, chills, and weight loss, sb4 11:46 Skin: Positive for laceration(s), of the dorsal aspect of middle phalanx of right index finger, dorsal aspect of middle phalanx of right middle finger, dorsal aspect of middle phalanx of right ring finger and dorsal aspect of distal phalanx of right little finger, 11:46 All other systems are negative, Exam: 12:50 Constitutional: This is a well developed, well nourished patient who is awake, alert, sb4 and in no acute distress. Head/Face: Normocephalic, atraumatic. Eyes: Extra-ocular motions intact. Periorbital areas with no swelling, redness, or edema. ENT: Mucous membranes moist. 12:50 Skin: 3 cm superficial laceration dorsum of 2nd finger middle phalanx, several small abrasions/puncture wounds dorsum of 3rd and 4th right fingers as well as left 2nd finger. irregularly shaped laceration / skin flap noted to dorsal 5th distal phalanx with moderate bleeding. Vital Signs: 11:27 BP 138 / 71; Pulse 98; Resp 18; Temp 97.6; Pulse Ox 99% on R/A; Weight 72.57 kg; Height ph 5 ft. 9 in. ; 13:01 BP 128 / 74; Pulse 80; Resp 18; Pulse Ox 99% on R/A; rs5 11:27 Body Mass Index 23.63 (72.57 kg, 175.26 cm) ph Laceration: 12:50 Wound Repair of 3cm ( 1.2in ) subcutaneous laceration to dorsal aspect of middle sb4 phalanx of right index finger. Distal neuro/vascular/tendon intact. Wound prep: Moderate cleansing with betadine by nurse, Wound irrigation with saline by nurse. Skin closed with thin layer Adhesive skin closure using Dermabond. Dressed with Kerlix. Patient tolerated well. MDM: 11:32 Patient medically screened. sb4 12:50 Data reviewed: vital signs, nurses notes, radiologic studies, and as a result, I will sb4 discharge patient. Counseling: I had a detailed discussion with the patient and/or guardian regarding the historical points, exam findings, and any diagnostic results supporting the discharge/admit diagnosis, radiology results, to return to the emergency department if symptoms worsen or persist or if there are any questions or concerns that arise at home. 02/10 11:33 Order name: Hand Right 3 View XRAY; Complete Time: 12:32 sb4 02/10 11:33 Order name: Hand Left 3 View XRAY; Complete Time: 12:30 sb4 02/10 11:45 Order name: Misc. Order: betadine bath for hand; Complete Time: 12:26 sb4 02/10 11:47 Order name: Dermabond; Complete Time: 13:03 sb4 Administered Medications: 12:32 Drug: Boostrix Tdap IM 0.5 ml IM once; as a single dose Route: IM; Site: left deltoid; rs5 13:00 Follow up: Response: No adverse reaction rs5 12:32 Drug: Acetaminophen PO 1000 mg PO once Route: PO; rs5 13:00 Follow up: Response: No adverse reaction rs5 12:32 Drug: Ibuprofen PO 600 mg PO once Route: PO; rs5 13:00 Follow up: Response: No adverse reaction rs5 Disposition: 15:10 I was immediately available on-site in the Emergency Department for consultation in the ms3 care of the patient. Disposition Summary: 02/11/24 12:48 Discharge Ordered Notes: Location: Home sb4 Problem: new sb4 Symptoms: have improved sb4 Condition: Stable sb4 Diagnosis - superficial lacerations right hand sb4 Followup: sb4 - With: Emergency Department - When: As needed - Reason: Trouble breathing, Worsening of condition Discharge Instructions: - Discharge Summary Sheet sb4 - Nonsutured Laceration Care sb4 Forms: - Thank You Letter sb4 - Antibiotic Education sb4 - Patient Portal Instructions sb4 - Leadership Thank You Letter sb4 Prescriptions: - Cephalexin 500 mg Oral Capsule - take 1 capsule ORAL route every 8 hours for 10 days; 30 capsule; Refills: 0, sb4 Product Selection Permitted Signatures: Dispatcher [employer] EDMS Sari Leyva, RN RN Bhaskar Woodward, DO DO ms3 Payal Zaragoza, PARobertC PAGeraldine sb4 Emilio Geronimo RN RN rs5
--- NOTE | 2024-02-11 12:48 | ER ---
Nurse's Notes [facility] Name: Ivan Cordero Age: 28 yrs Sex: Male : 1995 Arrival Date: 02/11/2024 Time: 11:13 Bed 9 Private MD: Diagnosis: superficial lacerations right hand Presentation: 02/10 11:27 Chief complaint: Patient states: Locked keys in car, states, " I broke in through the ph window with my hand but I forgot to wrap it up with something first." Lacerations to all fingers of R hand, laceration to L first finger, may be glass present. Coronavirus screen: Vaccine status: Patient reports receiving the 2nd dose of the covid vaccine. Ebola Screen: No symptoms or risks identified at this time. Complicating Factors: Glass or an other foreign body is present in the wound. Initial Sepsis Screen: Does the patient meet any 2 criteria? No. Patient's initial sepsis screen is negative. Does the patient have a suspected source of infection? No. Patient's initial sepsis screen is negative. Risk Assessment: Do you want to hurt yourself or someone else? Patient reports no desire to harm self or others. Onset of symptoms was February 11, 2024. 11:27 Method Of Arrival: Ambulatory 11:27 Acuity: DANIEL 4 ph Historical: - Allergies: 11:30 unknown antibiotic; ph - PMHx: 11:30 None; rs5 - PSHx: 11:30 None; rs5 - Immunization history:: Adult Immunizations unknown. - Infectious Disease History:: Denies. - Social history:: Smoking status: Patient reports the use of cigarette tobacco products, denies chronic smoking, but will smoke occasionally. Screenin:32 [facility] ED Fall Risk Assessment (Adult) History of falling in the last 3 months, rs5 including since admission No falls in past 3 months (0 pts) Confusion or Disorientation No (0 pts) Intoxicated or Sedated No (0 pts) Impaired Gait No (0 pts) Mobility Assist Device Used No (0 pt) Altered Elimination No (0 pt) Score/Fall Risk Level 0 - 2 = Low Risk Oriented to surroundings, Maintained a safe environment. Abuse screen: Denies threats or abuse. Nutritional screening: No deficits noted. Tuberculosis screening: No symptoms or risk factors identified. Assessment: 11:32 General: Appears in no apparent distress. uncomfortable, Behavior is calm, cooperative. rs5 Pain: Complains of pain in right hand Pain currently is 5 out of 10 on a pain scale. Quality of pain is described as aching, Is continuous. Neuro: Level of Consciousness is awake, alert, obeys commands, Oriented to person, place. Cardiovascular: Patient's skin is warm and dry. Rhythm is regular. Respiratory: Respiratory effort is even, unlabored, Respiratory pattern is regular, symmetrical. GI: Abdomen is round non-distended, Abd is soft and non tender X 4 quads. : No signs and/or symptoms were reported regarding the genitourinary system. EENT: No signs and/or symptoms were reported regarding the EENT system. Derm: Skin multiple small lacerations noted to knuckles on right hand, no active bleeding noted. 11:32 Musculoskeletal: Range of motion: limited in right hand. rs5 11:33 Injury Description: Laceration is clean, not bleeding. rs5 12:05 Reassessment: Patient and/or family updated on plan of care and expected duration. Pain rs5 level reassessed. Patient is alert, oriented x 3, equal unlabored respirations, skin warm/dry/pink. 13:01 Reassessment: Patient and/or family updated on plan of care and expected duration. Pain rs5 level reassessed. Patient is alert, oriented x 3, equal unlabored respirations, skin warm/dry/pink. Patient denies pain at this time. Patient states feeling better. Patient states symptoms have improved. Vital Signs: 11:27 BP 138 / 71; Pulse 98; Resp 18; Temp 97.6; Pulse Ox 99% on R/A; Weight 72.57 kg; Height ph 5 ft. 9 in. ; 13:01 BP 128 / 74; Pulse 80; Resp 18; Pulse Ox 99% on R/A; rs5 11:27 Body Mass Index 23.63 (72.57 kg, 175.26 cm) ph ED Course: 11:16 Patient arrived in ED. rg4 11:17 Payal Zaragoza PA-C is PHCP. sb4 11:17 Bhaskar Woodward DO is Attending Physician. sb4 11:30 Triage completed. ph 11:31 Arm band placed on Patient placed in an exam room, Patient notified of wait time. ph 11:34 Sari Leyva, RN is Primary Nurse. ph 12:11 Hand Right 3 View XRAY In Process Unspecified. EDMS 12:11 Hand Left 3 View XRAY In Process Unspecified. EDMS 13:00 No provider procedures requiring assistance completed. rs5 13:01 Patient has correct armband on for positive identification. Bed in low position. Call rs5 light in reach. Side rails up X2. 13:09 IV discontinued, intact, bleeding controlled, No redness/swelling at site. Pressure rs5 dressing applied. Administered Medications: 12:32 Drug: Boostrix Tdap IM 0.5 ml IM once; as a single dose Route: IM; Site: left deltoid; rs5 13:00 Follow up: Response: No adverse reaction rs5 12:32 Drug: Acetaminophen PO 1000 mg PO once Route: PO; rs5 13:00 Follow up: Response: No adverse reaction rs5 12:32 Drug: Ibuprofen PO 600 mg PO once Route: PO; rs5 13:00 Follow up: Response: No adverse reaction rs5 Medication: 12:45 VIS not applicable for this client. rs5 Outcome: 12:48 Discharge ordered by . sb4 13:09 Discharged to home ambulatory, rs5 13:09 Condition: stable rs5 13:09 Discharge instructions given to patient, family, Instructed on discharge instructions, follow up and referral plans. medication usage, Demonstrated understanding of instructions, follow-up care, medications, Prescriptions given X 1, 13:10 Patient left the ED. rs5 Signatures: Dispatcher [employer] [facility] Sari Leyva, Crissy Singh RN, ph 4 Payal Zaragoza PA-C PA-C sb4 Emilio Geronimo RN RN rs5 Corrections: (The following items were deleted from the chart) 13:29 13:28 Patient left the ED. rs5 rs5
[2024-02-11 18:31] VITALS: BP 138/71; TEMP 97.6; O2SAT 99
== END 2024-02-11 13:28 | disposition home or self-care (01) ==
LOC: ER 11:13
PROC: 0HQFXZZ Repair Right Hand Skin, External Approach (ICD-10-PCS; principal; 2024-02-11)
DX: S61.210A Laceration without foreign body of right index finger without damage to nail, initial encounter (principal)
CPT/HCPCS: 96372; 99284

== ENCOUNTER 2024-03-06 10:32 | Emergency (ER) | payer SELFPAY ==
--- NOTE | 2024-03-06 10:52 | EDPHYS ---
Physician Documentation [facility] Name: Ivan Cordero Age: 28 yrs Sex: Male : 1995 Arrival Date: 03/06/2024 Time: 10:32 Bed 12 Private MD: ED Physician Azeb Otoole HPI: 03/06 10:47 This 28 yrs old Male presents to ER via Ambulatory with complaints of Wound sp3 Check. 10:47 Patient complains of swelling in the dorsal aspect of the right index finger and the sp3 first MC joint. Patient states he feels like there is "glass inside". X-rays obtained on February 10 demonstrated no foreign body at that time. No reinjury noted. Skin is completely healed and there is no open wound. Patient has full function of the finger.. Historical: - Allergies: 10:40 unknown antibiotic; iw - Home Meds: 10:40 None [Active]; iw - PMHx: 10:40 None; iw - PSHx: 10:40 None; iw - Immunization history:: Last tetanus immunization: < 5 years ago. - Infectious Disease History:: Denies. - Social history:: Smoking status: Patient reports the use of cigarette tobacco products. ROS: 10:49 Constitutional: Negative for fever, chills, and weight loss, Eyes: Negative for injury, sp3 pain, redness, and discharge, ENT: Negative for injury, pain, and discharge, Neck: Negative for injury, pain, and swelling, Cardiovascular: Negative for chest pain, palpitations, and edema, Respiratory: Negative for shortness of breath, cough, wheezing, and pleuritic chest pain, Abdomen/GI: Negative for abdominal pain, nausea, vomiting, diarrhea, and constipation, Back: Negative for injury and pain, Neuro: Negative for headache, weakness, numbness, tingling, and seizure, Psych: Negative for depression, anxiety, suicide ideation, homicidal ideation, and hallucinations, Allergy/Immunology: Negative for hives, rash, and allergies, Endocrine: Negative for neck swelling, polydipsia, polyuria, polyphagia, and marked weight changes, 10:49 All other systems are negative, Exam: 10:49 Constitutional: This is a well developed, well nourished patient who is awake, alert, sp3 and in no acute distress. Head/Face: Normocephalic, atraumatic. Eyes: Pupils equal round and reactive to light, extra-ocular motions intact. Lids and lashes normal. Conjunctiva and sclera are non-icteric and not injected. Cornea within normal limits. Periorbital areas with no swelling, redness, or edema. ENT: Nares patent. No nasal discharge, no septal abnormalities noted. External auditory canals are clear. Oropharynx with no redness, swelling, or masses, exudates, or evidence of obstruction, uvula midline. Mucous membranes moist. Neck: Trachea midline, no thyromegaly or masses palpated, and no cervical lymphadenopathy. Supple, full range of motion without nuchal rigidity, or vertebral point tenderness. No Meningismus. Chest/axilla: Normal chest wall appearance and motion. Nontender with no deformity. No lesions are appreciated. Cardiovascular: Regular rate and rhythm with a normal S1 and S2. No gallops, murmurs, or rubs. Normal PMI, no JVD. No pulse deficits. Respiratory: Lungs have equal breath sounds bilaterally, clear to auscultation and percussion. No rales, rhonchi or wheezes noted. No increased work of breathing, no retractions or nasal flaring. Skin: Warm, dry with normal turgor. Normal color with no rashes, no lesions, and no evidence of cellulitis. Neuro: Awake and alert, GCS 15, oriented to person, place, time, and situation. Cranial nerves II-XII grossly intact. Motor strength 5/5 in all extremities. Sensory grossly intact. Cerebellar exam normal. Normal gait. Psych: Awake, alert, with orientation to person, place and time. Behavior, mood, and affect are within normal limits. 10:49 Musculoskeletal/extremity: First IP joint has swelling on the dorsal side with possible foreign body underneath. No open wound.. Vital Signs: 10:39 BP 120 / 64; Pulse 74; Resp 16; Temp 98.1; Pulse Ox 98% on R/A; Weight 72.57 kg; Height iw 5 ft. 9 in. ; 10:39 Body Mass Index 23.63 (72.57 kg, 175.26 cm) iw MDM: 10:45 Patient medically screened. sp3 10:50 Data reviewed: vital signs, nurses notes. ED course: I offered to x-ray it but told him sp3 that we would not be able to remove any foreign body as that is an elective procedure that that would need to be done by hand or plastic surgeon. Patient elects to not have x-ray performed at this time and states he would like to be discharged.. Administered Medications: No medications were administered Disposition Summary: 03/06/24 10:51 Discharge Ordered Notes: Location: Home sp3 Condition: Stable sp3 Diagnosis - Finger swelling, possible retained foreign body sp3 Followup: sp3 - With: Private Physician - When: Upon discharge from the Emergency Department - Reason: Continuance of care Discharge Instructions: - Discharge Summary Sheet sp3 - Hand or Foot Foreign Body, Adult sp3 Forms: - Medication Reconciliation Form sp3 - Antibiotic Education sp3 - Prescription Opioid Use sp3 - Patient Portal Instructions sp3 - Leadership Thank You Letter sp3 Signatures: Rani Jara RN RN Azeb Nation MD MD sp3 Corrections: (The following items were deleted from the chart) 10:49 10:47 Patient complains of swelling in the dorsal aspect of the right index finger and sp3 the first MC joint. Patient states he feels like there is "glass inside". X-rays obtained on February 10 demonstrated no foreign body at that time.. sp3
--- NOTE | 2024-03-06 10:52 | ER ---
Nurse's Notes [facility] Name: Ivan Cordero Age: 28 yrs Sex: Male : 1995 Arrival Date: 03/06/2024 Time: 10:32 Bed 12 Private MD: Diagnosis: Finger swelling, possible retained foreign body Presentation: 03/06 10:39 Chief complaint: Patient states: skin issue on right index finger and feels like there iw is a foreign object in his left index finger, was seen here and they thought there was glass in it but there wasn't , that was on February 10. Coronavirus screen: At this time, the client does not indicate any symptoms associated with coronavirus-19. Ebola Screen: Patient negative for fever greater than or equal to 101.5 degrees Fahrenheit, and additional compatible Ebola Virus Disease symptoms Patient denies exposure to infectious person. Patient denies travel to an Ebola-affected area in the 21 days before illness onset. No symptoms or risks identified at this time. Initial Sepsis Screen: Does the patient meet any 2 criteria? No. Patient's initial sepsis screen is negative. Does the patient have a suspected source of infection? No. Patient's initial sepsis screen is negative. Risk Assessment: Do you want to hurt yourself or someone else? Patient reports no desire to harm self or others. Onset of symptoms was March 06, 2024. 10:39 Method Of Arrival: Ambulatory iw 10:39 Acuity: DANIEL 4 iw Historical: - Allergies: 10:40 unknown antibiotic; iw - Home Meds: 10:40 None [Active]; iw - PMHx: 10:40 None; iw - PSHx: 10:40 None; iw - Immunization history:: Last tetanus immunization: < 5 years ago. - Infectious Disease History:: Denies. - Social history:: Smoking status: Patient reports the use of cigarette tobacco products. Screenin:43 [facility] ED Fall Risk Assessment (Adult) Score/Fall Risk Level 0 - 2 = Low Risk. Abuse iw screen: Denies threats or abuse. Denies injuries from another. Nutritional screening: No deficits noted. Tuberculosis screening: No symptoms or risk factors identified. Assessment: 10:42 General: Appears in no apparent distress. Behavior is calm. Pain: Complains of pain in iw dorsal aspect of distal phalanx of right index finger. Neuro: Level of Consciousness is awake, alert, obeys commands, Oriented to person, place, time, situation. Cardiovascular: Patient's skin is warm and dry. Respiratory: Respiratory effort is even, unlabored, Respiratory pattern is regular. Derm: Skin is intact, is healthy with good turgor. Musculoskeletal: Range of motion: intact in all extremities. 10:57 Reassessment: No changes from previously documented assessment. Patient and/or family ll1 updated on plan of care and expected duration. Pain level reassessed. Patient is alert, oriented x 3, equal unlabored respirations, skin warm/dry/pink. Vital Signs: 10:39 BP 120 / 64; Pulse 74; Resp 16; Temp 98.1; Pulse Ox 98% on R/A; Weight 72.57 kg; Height iw 5 ft. 9 in. ; 10:39 Body Mass Index 23.63 (72.57 kg, 175.26 cm) iw ED Course: 10:34 Patient arrived in ED. mr 10:35 Azeb Otoole MD is Attending Physician. sp3 10:40 Triage completed. iw 10:41 Rani Jara, RN is Primary Nurse. iw 10:41 Arm band placed on. iw 10:57 No provider procedures requiring assistance completed. Patient did not have IV access ll1 during this emergency room visit. 10:58 Patient has correct armband on for positive identification. Provided Education on: n/a. ll1 Administered Medications: No medications were administered Medication: 10:43 VIS not applicable for this client. iw Outcome: 10:51 Discharge ordered by . sp3 10:57 Discharged to home ambulatory, ll1 10:57 Condition: stable 10:57 Discharge instructions given to patient, Instructed on discharge instructions, follow up and referral plans. Demonstrated understanding of instructions, follow-up care, 10:58 Patient left the ED. ll1 Signatures: FuentesCyn matias, Reg Reg mr Rani Jara, MARGARITO PIMENTEL iw Krzysztof Morales RN RN ll1 Azeb Otoole MD MD sp3
[2024-03-06 11:03] VITALS: BP 120/64; TEMP 98.1; O2SAT 98
== END 2024-03-06 10:58 | disposition home or self-care (01) ==
LOC: ER 10:32
DX: R22.31 Localized swelling, mass and lump, right upper limb (principal)